=== PATIENT | female | born 1935 | race African-American/Black ===

== ENCOUNTER → 2016-10-10 | Outpatient (CLI) | payer MEDICARE, MEDICAID ==
[~2016-10-10] MED LIST: AMLODIPINE; HYDRX10T
[2016-10-10 10:51] LABS: Basophils # (auto) 0 uL; Basophils % (auto) 0.3 % (0.0-2.0); Eosinophils # (auto) 0.2 uL; Eosinophils % (auto) 1.4 % (0.0-7.0); Hematocrit 41.8 % (36.0-46.0); Hemoglobin 14.1 g/dL (12.2-16.2); Lymphocytes # (auto) 0.9 uL; Lymphocytes % (auto) 8.2 % (10.0-50.0); Mean Corpuscular Hemoglobin 27.1 pg (28.0-32.0); Mean Corpuscular Hgb Conc. 33.7 g/dL (32.0-36.0); Mean Corpuscular Volume 80.7 fL (80.0-100.0); Monocytes # (auto) 0.4 uL; Monocytes % (auto) 3.7 % (0.0-12.0); Neutrophils # (auto) 9.5 uL; Neutrophils % (auto) 86.4 % (37.0-80.0); Platelet Count (auto) 394 10^3/uL (140-450)
[2016-10-10 11:28] LABS: Albumin 4.5 g/dL (3.4-5.0); BUN/Creatinine Ratio 9.5; Bilirubin, Total 2.2 mg/dL (0.2-1.0); Calcium 10.5 mg/dL (8.5-10.1); Potassium 4.3 mmol/L (3.5-5.1); Total Protein 8.5 g/dL (6.4-8.2)
== END | disposition home or self-care (01) ==
LOC: LAB 10:28
PROVIDERS: ATTEND Internal Medicine
DX: I10 Essential (primary) hypertension (principal); E78.2 Mixed hyperlipidemia; E55.9 Vitamin D deficiency, unspecified
CPT/HCPCS: 36415; 80053; 80061; 82306; 84443; 85025

== ENCOUNTER → 2017-04-28 | Outpatient (CLI) | payer MEDICARE, MEDICAID ==
[2017-04-28 10:09] LABS: Basophils # (auto) 0.1 uL; Basophils % (auto) 0.7 % (0.0-2.0); Eosinophils # (auto) 0.3 uL; Eosinophils % (auto) 3.5 % (0.0-7.0); Hematocrit 41.8 % (36.0-46.0); Hemoglobin 14.3 g/dL (12.2-16.2); Lymphocytes # (auto) 0.9 uL; Lymphocytes % (auto) 9.4 % (10.0-50.0); Mean Corpuscular Hemoglobin 28.3 pg (28.0-32.0); Mean Corpuscular Hgb Conc. 34.1 g/dL (32.0-36.0); Mean Corpuscular Volume 82.8 fL (80.0-100.0); Mean Platelet Volume 7.8 fL (6.9-10.8); Monocytes # (auto) 0.5 uL; Monocytes % (auto) 5.1 % (0.0-12.0); Neutrophils # (auto) 7.6 uL; Neutrophils % (auto) 81.3 % (37.0-80.0); Nucleated Red Blood Cells % 0.1 %; Platelet Count (auto) 328 10^3/uL (140-450); Red Cell Distribution Width 14.3 % (11.8-14.3); White Blood Cell 9.4 10^3/uL (4.4-10.8)
[2017-04-28 10:50] LABS: BUN/Creatinine Ratio 10.3; Calcium 10.2 mg/dL (8.5-10.1); Potassium 4.1 mmol/L (3.5-5.1)
== END | disposition home or self-care (01) ==
LOC: LAB 09:49
PROVIDERS: ATTEND Internal Medicine
DX: I10 Essential (primary) hypertension (principal); E78.2 Mixed hyperlipidemia
CPT/HCPCS: 36415; 80048; 80061; 85025

== ENCOUNTER → 2017-09-03 | Outpatient (CLI) | payer MEDICARE | END | disposition home or self-care (01) | LOC: LAB 14:47 | PROVIDERS: ATTEND Physician Assistant | DX: Z00.01 Encounter for general adult medical examination with abnormal findings (principal); I12.9 Hypertensive chronic kidney disease with stage 1 through stage 4 chronic kidney disease, or unspecified chronic kidney disease; N18.3 Chronic kidney disease, stage 3 (moderate) | CPT/HCPCS: 82270 ==

== ENCOUNTER → 2018-11-26 | Outpatient (CLI) | payer MEDICARE ==
[2018-11-26 09:38] LABS: Basophils # (auto) 0 uL; Basophils % (auto) 0.6 % (0.0-2.0); Eosinophils # (auto) 0.1 uL; Hemoglobin 13.2 g/dL (12.2-16.2); Lymphocytes # (auto) 0.6 uL; Lymphocytes % (auto) 7.9 % (10.0-50.0); Mean Corpuscular Hemoglobin 27.2 pg (28.0-32.0); Mean Corpuscular Hgb Conc. 32.9 g/dL (32.0-36.0); Mean Corpuscular Volume 82.5 fL (80.0-100.0); Monocytes # (auto) 0.4 uL; Monocytes % (auto) 4.8 % (0.0-12.0); Neutrophils # (auto) 6.3 uL; Neutrophils % (auto) 84.7 % (37.0-80.0); Nucleated Red Blood Cells % 0.1 %; Platelet Count (auto) 297 10^3/uL (140-450); Red Blood Cells 4.84 10^6/uL (4.0-5.20); Red Cell Distribution Width 14.8 % (11.8-14.3); White Blood Cell 7.4 10^3/uL (4.4-10.8)
[2018-11-26 11:34] LABS: Albumin 4.2 g/dL (3.4-5.0); BUN/Creatinine Ratio 11.9; Bilirubin, Total 1.3 mg/dL (0.2-1.0); Total Protein 7.8 g/dL (6.4-8.2)
== END | disposition home or self-care (01) ==
LOC: LAB 09:21
PROVIDERS: ATTEND Physician Assistant
DX: I12.9 Hypertensive chronic kidney disease with stage 1 through stage 4 chronic kidney disease, or unspecified chronic kidney disease (principal); N18.3 Chronic kidney disease, stage 3 (moderate); E55.9 Vitamin D deficiency, unspecified; E78.49 Other hyperlipidemia
CPT/HCPCS: 36415; 80053; 80061; 82306; 85025

== ENCOUNTER → 2020-09-25 | Outpatient (CLI) | payer MEDICARE, MEDICAID ==
[2020-09-25 09:44] LABS: Basophils # (auto) 0.1 10 ^3/uL (0-0.2); Basophils % (auto) 0.9 % (0.0-2.0); Eosinophils # (auto) 0.5 10 ^3/uL (0-0.8); Eosinophils % (auto) 5.7 % (0.0-7.0); Hematocrit 40.4 % (36.0-46.0); Hemoglobin 13.6 g/dL (12.2-16.2); Lymphocytes # (auto) 0.9 10 ^3/uL (0.4-5.4); Lymphocytes % (auto) 11.1 % (10.0-50.0); Mean Corpuscular Hgb Conc. 33.7 g/dL (32.0-36.0); Monocytes # (auto) 0.6 10 ^3/uL (0-1.3); Monocytes % (auto) 7.2 % (0.0-12.0); Neutrophils # (auto) 6.4 10 ^3/uL (1.6-8.6); Neutrophils % (auto) 75.1 % (37.0-80.0); Platelet Count (auto) 352 10^3/uL (140-450); Red Blood Cells 4.87 10^6/uL (4.0-5.20); Red Cell Distribution Width 15.5 % (11.8-14.3); White Blood Cell 8.6 10^3/uL (4.4-10.8)
[2020-09-25 10:18] LABS: Albumin 4.1 g/dL (3.4-5.0); Potassium 4.1 mmol/L (3.5-5.1)
[2020-09-25 10:26] LABS: BUN/Creatinine Ratio 10.4; Bilirubin, Total 0.8 mg/dL (0.2-1.0); Calcium 10.6 mg/dL (8.5-10.1); Total Protein 7.9 g/dL (6.4-8.2)
== END | disposition home or self-care (01) ==
LOC: LAB 09:28
PROVIDERS: ATTEND Physician Assistant
DX: I12.9 Hypertensive chronic kidney disease with stage 1 through stage 4 chronic kidney disease, or unspecified chronic kidney disease (principal); N18.30 Chronic kidney disease, stage 3 unspecified; E78.49 Other hyperlipidemia; R79.89 Other specified abnormal findings of blood chemistry
CPT/HCPCS: 36415; 80053; 80061; 85025

== ENCOUNTER 2020-10-26 23:14 | Emergency (ER) | payer MEDICARE, MEDICAID ==
[~2020-10-26] VITALS: Ht 172.7 cm; Wt 79.4 kg
[2020-10-27] MEDS ORDERED: ACETAMINOPHEN 500 MG TAB PO ONE (07:45)
[2020-10-27 07:57] VITALS: BP 127/59
== END 2020-10-27 07:56 | disposition home or self-care (01) ==
LOC: ER 23:24
DX: S01.81XA Laceration without foreign body of other part of head, initial encounter (principal); R41.82 Altered mental status, unspecified; F41.9 Anxiety disorder, unspecified; J45.909 Unspecified asthma, uncomplicated; E78.00 Pure hypercholesterolemia, unspecified; I10 Essential (primary) hypertension; E78.5 Hyperlipidemia, unspecified; Z98.890 Other specified postprocedural states; W06.XXXA Fall from bed, initial encounter; Y93.89 Activity, other specified; Y92.89 Other specified places as the place of occurrence of the external cause; Y99.8 Other external cause status
CPT/HCPCS: 12013; 70450; 72125; 73090

== ENCOUNTER 2022-04-27 12:16 | Inpatient (IN) | payer MEDICAID, MEDICARE, OTHER ==
[~2022-04-27] VITALS: Ht 152.4 cm; Wt 79.0 kg
[2022-04-27] MEDS ORDERED: SODIUM CHLORIDE 0.9% 1,000 ML IV ONE (12:30)
[2022-04-27] MEDS ORDERED: FUROSEMIDE 20 MG/2 ML VIAL IV ONE (13:00)
[2022-04-27 13:39] LABS: Basophils # (auto) 0.1 10 ^3/uL (0-0.2); Eosinophils # (auto) 0.1 10 ^3/uL (0-0.8); Lymphocytes # (auto) 1.2 10 ^3/uL (0.4-5.4); Monocytes # (auto) 0.7 10 ^3/uL (0-1.3); Red Cell Distribution Width 20.4 % (11.8-14.3)
[2022-04-27 13:40] LABS: Basophils % (auto) 0.6 % (0.0-2.0); Eosinophils % (auto) 0.6 % (0.0-7.0); Hemoglobin 12.1 g/dL (12.2-16.2); Lymphocytes % (auto) 9.9 % (10.0-50.0); Mean Corpuscular Hgb Conc. 31.9 g/dL (32.0-36.0); Mean Corpuscular Volume 84.6 fL (80.0-100.0); Monocytes % (auto) 6.4 % (0.0-12.0); Neutrophils # (auto) 9.7 10 ^3/uL (1.6-8.6); Neutrophils % (auto) 82.5 % (37.0-80.0); Nucleated Red Blood Cells % 0.6 %; Red Blood Cells 4.49 10^6/uL (4.0-5.20); White Blood Cell 11.8 10^3/uL (4.4-10.8)
[2022-04-27 14:06] LABS: Albumin 2.9 g/dL (3.4-5.0); BUN/Creatinine Ratio 13.9; Calcium 9.2 mg/dL (8.5-10.1); Potassium 4.9 mmol/L (3.5-5.1)
[2022-04-27 14:22] LABS: Bilirubin, Total 1.2 mg/dL (0.2-1.0); Total Protein 6.7 g/dL (6.4-8.2)
[2022-04-27 14:37] LABS: Lactic Acid w/Reflex 3.3 mmol/L (0.4-2.0)
[2022-04-27] MEDS ORDERED: ONDANSETRON HCL 4 MG/2 ML VIAL IV PRN (15:45)
[2022-04-27] MEDS ORDERED: ACETAMINOPHEN 325 MG TAB PO PRN (15:45)
[2022-04-27] MEDS ORDERED: NITROGLYCERIN 0.4 MG SL TAB SL PRN (15:45)
[2022-04-27] MEDS ORDERED: cefTRIAXone 1GM/50ML D5W 50 ML IV ONE (15:45)
[2022-04-27] MEDS ORDERED: MORPHINE SULFATE INJ 2 MG/ml SYRG IV PRN (15:45)
[2022-04-27] MEDS ORDERED: HYDROcodone-ACET 5/325MG TAB PO PRN (15:45)
[2022-04-27] MEDS ORDERED: DOCUSATE SOD 100 MG CAP PO PRN (15:45)
[2022-04-27] MEDS: ALBUTEROL SULF 2.5 MG/0.5ML(0.5%) NEB SOLN NEB SCH (18:18)
[2022-04-27] MEDS: IPRATROPIUM BROM 0.5 MG/2.5ML INH SOL NEB SCH (18:19)
[2022-04-27] MEDS: D5W 5% 1,000 ML IV SCH (22:28)
[2022-04-27 23:18] VITALS: BP 112/65
[2022-04-27] MEDS ORDERED: ATOR10TA52 PO (23:35)
[2022-04-27] MEDS ORDERED: HYDR12.55 PO (23:35)
[2022-04-27] MEDS ORDERED: LATA0.0019 EACHEYE (23:35)
[2022-04-27] MEDS ORDERED: ALBU108A5 INH (23:35)
[2022-04-27] MEDS ORDERED: AMLO-496 PO (23:35)
[2022-04-27] MEDS ORDERED: LISI-716 PO (23:35)
[2022-04-27 23:53] VITALS: BP 112/65
[2022-04-28 05:00] VITALS: BP 106/61
[2022-04-28 06:16] LABS: Basophils # (auto) 0.1 10 ^3/uL (0-0.2); Basophils % (auto) 0.6 % (0.0-2.0); Eosinophils # (auto) 0.1 10 ^3/uL (0-0.8); Eosinophils % (auto) 0.8 % (0.0-7.0); Hematocrit 33.3 % (36.0-46.0); Hemoglobin 10.8 g/dL (12.2-16.2); Lymphocytes # (auto) 1.1 10 ^3/uL (0.4-5.4); Lymphocytes % (auto) 9.7 % (10.0-50.0); Mean Corpuscular Hemoglobin 27.7 pg (28.0-32.0); Mean Corpuscular Hgb Conc. 32.4 g/dL (32.0-36.0); Mean Corpuscular Volume 85.4 fL (80.0-100.0); Monocytes # (auto) 0.8 10 ^3/uL (0-1.3); Monocytes % (auto) 7.5 % (0.0-12.0); Neutrophils # (auto) 8.8 10 ^3/uL (1.6-8.6); Neutrophils % (auto) 81.4 % (37.0-80.0); Nucleated Red Blood Cells % 0.2 %; White Blood Cell 10.8 10^3/uL (4.4-10.8)
[2022-04-28 06:35] LABS: Red Cell Distribution Width 20.8 % (11.8-14.3)
[2022-04-28 06:50] LABS: Potassium 4.2 mmol/L (3.5-5.1)
[2022-04-28] MEDS: ALBUTEROL SULF 2.5 MG/0.5ML(0.5%) NEB SOLN NEB SCH ×3 (06:55→18:33)
[2022-04-28] MEDS: IPRATROPIUM BROM 0.5 MG/2.5ML INH SOL NEB SCH ×3 (06:55→18:33)
[2022-04-28 07:00] LABS: BUN/Creatinine Ratio 16.1; Calcium 8.8 mg/dL (8.5-10.1)
[2022-04-28 09:00] VITALS: BP 117/48
[2022-04-28] MEDS: D5W 5% 1,000 ML IV SCH (09:14)
[2022-04-28] MEDS: cefTRIAXone 1GM/50ML D5W 50 ML IV SCH (09:21)
[2022-04-28] MEDS: PANTOPRAZOLE 40 MG/10 ML VIAL INJ IV SCH (09:24)
[2022-04-28] MEDS: FUROSEMIDE 20 MG/2 ML VIAL IV SCH (09:29)
[2022-04-28] MEDS ORDERED: ENOXAPARIN SOD 30 MG/0.3 ML SYRINGE SC SCH (10:00)
[2022-04-28 13:00] VITALS: BP_SYST 106; BP_SYST 116; BP_DIAS 55; BP_DIAS 59
[2022-04-28] MEDS: SOD CHL 0.45% 1,000 ML IV SCH (16:30)
[2022-04-28 17:00] VITALS: BP 103/59
[2022-04-28] MEDS ORDERED: ENOXAPARIN SOD 60 MG/0.6 ML SYRINGE SC ONE (18:00)
[2022-04-28] MEDS ORDERED: ATORVASTATIN 20 MG TAB PO ONE (18:00)
[2022-04-28 20:22] LABS: Urine Bacteria NONE SEEN /hpf (None Seen); Urine Blood 1+ /uL (Negative); Urine Hyaline Cast FEW /lpf (0 - 2); Urine Specific Gravity 1.009 (1.001-1.035); Urine WBC 68 /hpf (0 - 5)
[2022-04-28 20:39] LABS: Protein, Urine 16.5 mg/dL (0.0-11.9)
[2022-04-28] MEDS: LATANOPROST 0.005 % OPTH(EYE) SOL 2.5ML EACHEYE SCH (21:02)
[2022-04-28] MEDS: ATORVASTATIN 20 MG TAB PO SCH (21:03)
[2022-04-28 22:00] VITALS: BP 10/52
[2022-04-29] MEDS: SOD CHL 0.45% 1,000 ML IV SCH (02:17)
[2022-04-29 05:00] VITALS: BP 114/59
[2022-04-29] MEDS: ALBUTEROL SULF 2.5 MG/0.5ML(0.5%) NEB SOLN NEB SCH ×3 (06:40→19:01)
[2022-04-29] MEDS: IPRATROPIUM BROM 0.5 MG/2.5ML INH SOL NEB SCH ×3 (06:40→19:01)
[2022-04-29 06:46] LABS: Basophils # (auto) 0.1 10 ^3/uL (0-0.2); Basophils % (auto) 0.6 % (0.0-2.0); Eosinophils # (auto) 0.1 10 ^3/uL (0-0.8); Hematocrit 30.9 % (36.0-46.0); Lymphocytes # (auto) 1.2 10 ^3/uL (0.4-5.4); Mean Corpuscular Hemoglobin 27.6 pg (28.0-32.0); Mean Corpuscular Hgb Conc. 32.5 g/dL (32.0-36.0); Monocytes # (auto) 0.5 10 ^3/uL (0-1.3); Neutrophils # (auto) 8.9 10 ^3/uL (1.6-8.6); Neutrophils % (auto) 82.4 % (37.0-80.0); Nucleated Red Blood Cells % 0.2 %; Red Blood Cells 3.63 10^6/uL (4.0-5.20); White Blood Cell 10.9 10^3/uL (4.4-10.8)
[2022-04-29 07:15] LABS: Red Cell Distribution Width 20.1 % (11.8-14.3)
[2022-04-29 07:16] LABS: BUN/Creatinine Ratio 16.3; Calcium 8.6 mg/dL (8.5-10.1); Potassium 4.2 mmol/L (3.5-5.1)
[2022-04-29 09:00] VITALS: BP 113/57
[2022-04-29] MEDS: cefTRIAXone 1GM/50ML D5W 50 ML IV SCH (09:00)
[2022-04-29] MEDS: PANTOPRAZOLE 40 MG/10 ML VIAL INJ IV SCH (09:01)
[2022-04-29] MEDS: FUROSEMIDE 20 MG/2 ML VIAL IV SCH (09:10)
[2022-04-29] MEDS ORDERED: D5W 5% 1,000 ML IV SCH (11:15)
[2022-04-29 13:00] VITALS: BP 119/67
[2022-04-29 17:00] VITALS: BP 123/70
[2022-04-29 17:16] LABS: Urine Bacteria NONE SEEN /hpf (None Seen); Urine Blood 1+ /uL (Negative); Urine Hyaline Cast FEW /lpf (0 - 2); Urine WBC 8 /hpf (0 - 5)
[2022-04-29 17:25] LABS: Cholesterol 108 mg/dL (< 200); HDL Cholesterol 59 mg/dL (40-59); LDL Cholesterol 35 mg/dL (< 100); Triglycerides 142 mg/dL (< 150)
[2022-04-29 17:26] LABS: Folate (Folic Acid) 4.9 ng/mL (5.38-24)
[2022-04-29] MEDS: ENOXAPARIN SOD 80 MG/0.8ML SYRINGE SC SCH (18:16)
[2022-04-29] MEDS ORDERED: CYANOCOBALAMIN (B-12) 1000 MCG/1 ML VIAL IM ONE (21:45)
[2022-04-29] MEDS ORDERED: B-COMPLEX W/ C & FOLIC ACID(NEPHROVITE TAB) PO ONE (21:45)
[2022-04-29 22:00] VITALS: BP 107/57
[2022-04-29] MEDS: ATORVASTATIN 20 MG TAB PO SCH (22:11)
[2022-04-29] MEDS: LATANOPROST 0.005 % OPTH(EYE) SOL 2.5ML EACHEYE SCH (22:11)
[2022-04-30 05:00] VITALS: BP 100/56
[2022-04-30] MEDS: ALBUTEROL SULF 2.5 MG/0.5ML(0.5%) NEB SOLN NEB SCH ×3 (06:31→18:54)
[2022-04-30] MEDS: IPRATROPIUM BROM 0.5 MG/2.5ML INH SOL NEB SCH ×3 (06:31→18:54)
[2022-04-30 07:06] LABS: RPR Non Reactive (Non Reactive)
[2022-04-30 07:19] LABS: Basophils # (auto) 0 10 ^3/uL (0-0.2); Basophils % (auto) 0.4 % (0.0-2.0); Eosinophils # (auto) 0.1 10 ^3/uL (0-0.8); Eosinophils % (auto) 1.6 % (0.0-7.0); Hemoglobin 10.6 g/dL (12.2-16.2); Lymphocytes # (auto) 0.7 10 ^3/uL (0.4-5.4); Lymphocytes % (auto) 7.3 % (10.0-50.0); Mean Corpuscular Hemoglobin 27.5 pg (28.0-32.0); Mean Corpuscular Hgb Conc. 32.1 g/dL (32.0-36.0); Mean Corpuscular Volume 85.5 fL (80.0-100.0); Monocytes # (auto) 0.6 10 ^3/uL (0-1.3); Monocytes % (auto) 6.3 % (0.0-12.0); Neutrophils % (auto) 84.4 % (37.0-80.0); Nucleated Red Blood Cells % 0.1 %; Red Blood Cells 3.86 10^6/uL (4.0-5.20); White Blood Cell 9.5 10^3/uL (4.4-10.8)
[2022-04-30 07:40] LABS: INR 1.13 (0.9-1.15); Partial Thromboplastin Time 42.8 sec (24.6-33.4)
[2022-04-30 07:46] LABS: Albumin 2.1 g/dL (3.4-5.0); BUN/Creatinine Ratio 16.9; Bilirubin, Total 1.2 mg/dL (0.2-1.0); Calcium 8.5 mg/dL (8.5-10.1); Magnesium 2.4 mg/dL (1.6-2.6); Phosphorus 3.4 mg/dL (2.5-4.90); Potassium 4.2 mmol/L (3.5-5.1); Total Protein 5.2 g/dL (6.4-8.2)
[2022-04-30 09:00] VITALS: BP 101/59
[2022-04-30] MEDS: PANTOPRAZOLE 40 MG/10 ML VIAL INJ IV SCH (10:49)
[2022-04-30] MEDS: cefTRIAXone 1GM/50ML D5W 50 ML IV SCH (10:51)
[2022-04-30] MEDS: B-COMPLEX W/ C & FOLIC ACID(NEPHROVITE TAB) PO SCH (10:51)
[2022-04-30] MEDS: CYANOCOBALAMIN (B-12) 1000 MCG/1 ML VIAL IM SCH (11:38)
[2022-04-30 13:00] VITALS: BP 102/55
[2022-04-30 17:00] VITALS: BP 112/65
[2022-04-30] MEDS: ENOXAPARIN SOD 80 MG/0.8ML SYRINGE SC SCH (18:00)
[2022-05-01 01:30] VITALS: BP 111/66
[2022-05-01] MEDS: LATANOPROST 0.005 % OPTH(EYE) SOL 2.5ML EACHEYE SCH (01:56)
[2022-05-01] MEDS: ATORVASTATIN 20 MG TAB PO SCH (01:56)
[2022-05-01 05:49] VITALS: BP 112/68
[2022-05-01 06:48] LABS: Basophils # (auto) 0 10 ^3/uL (0-0.2); Basophils % (auto) 0.5 % (0.0-2.0); Eosinophils # (auto) 0.1 10 ^3/uL (0-0.8); Eosinophils % (auto) 1.3 % (0.0-7.0); Hematocrit 31.5 % (36.0-46.0); Hemoglobin 10.2 g/dL (12.2-16.2); Lymphocytes # (auto) 0.5 10 ^3/uL (0.4-5.4); Lymphocytes % (auto) 5.7 % (10.0-50.0); Mean Corpuscular Hemoglobin 27.6 pg (28.0-32.0); Mean Corpuscular Hgb Conc. 32.4 g/dL (32.0-36.0); Mean Corpuscular Volume 85.3 fL (80.0-100.0); Monocytes # (auto) 0.6 10 ^3/uL (0-1.3); Monocytes % (auto) 7.6 % (0.0-12.0); Neutrophils % (auto) 84.9 % (37.0-80.0); Nucleated Red Blood Cells % 0.1 %; White Blood Cell 8.2 10^3/uL (4.4-10.8)
[2022-05-01 07:33] LABS: BUN/Creatinine Ratio 20.4; Calcium 8.7 mg/dL (8.5-10.1); Magnesium 2.3 mg/dL (1.6-2.6); Potassium 3.9 mmol/L (3.5-5.1)
[2022-05-01] MEDS ORDERED: D5W 5% 1,000 ML IV SCH ×2 (08:45→11:15)
[2022-05-01 09:00] VITALS: BP 124/64
[2022-05-01] MEDS: B-COMPLEX W/ C & FOLIC ACID(NEPHROVITE TAB) PO SCH (09:34)
[2022-05-01] MEDS: CYANOCOBALAMIN (B-12) 1000 MCG/1 ML VIAL IM SCH (09:35)
[2022-05-01] MEDS: cefTRIAXone 1GM/50ML D5W 50 ML IV SCH (09:36)
[2022-05-01] MEDS: IPRATROPIUM BROM 0.5 MG/2.5ML INH SOL NEB SCH ×2 (11:41→11:42)
[2022-05-01] MEDS: ALBUTEROL SULF 2.5 MG/0.5ML(0.5%) NEB SOLN NEB SCH (11:42)
[2022-05-01] MEDS ORDERED: APIX5TAB4 PO (11:45)
[2022-05-01 13:00] VITALS: BP 116/60
== END 2022-05-01 17:33 | disposition home or self-care (01) | DRG 291 ==
LOC: ER 12:21 → TELE 15:50 → TELE-WESTW 23:00
PROVIDERS: ADMIT Nurse Practitioner Family; ATTEND Internal Medicine
PROC: 0W9B3ZZ Drainage of Left Pleural Cavity, Percutaneous Approach (ICD-10-PCS; principal; 2022-05-01)
DX: I13.0 Hypertensive heart and chronic kidney disease with heart failure and stage 1 through stage 4 chronic kidney disease, or unspecified chronic kidney disease (principal); I50.31 Acute diastolic (congestive) heart failure; N17.0 Acute kidney failure with tubular necrosis; C79.51 Secondary malignant neoplasm of bone; I31.39 Other pericardial effusion (noninflammatory); I82.401 Acute embolism and thrombosis of unspecified deep veins of right lower extremity; E87.0 Hyperosmolality and hypernatremia; C78.00 Secondary malignant neoplasm of unspecified lung; F03.90 Unspecified dementia, unspecified severity, without behavioral disturbance, psychotic disturbance, mood disturbance, and anxiety; Z20.822 Contact with and (suspected) exposure to COVID-19; N18.32 Chronic kidney disease, stage 3b; K52.9 Noninfective gastroenteritis and colitis, unspecified; F41.9 Anxiety disorder, unspecified; E86.0 Dehydration; Z66 Do not resuscitate; E78.5 Hyperlipidemia, unspecified; J45.909 Unspecified asthma, uncomplicated; D64.9 Anemia, unspecified; Z87.891 Personal history of nicotine dependence; Z79.01 Long term (current) use of anticoagulants
CPT/HCPCS: 36415; 70450; 71045; 71250; 76604; 76775; 76942; 78582; 80048; 80053; 80061; 81001; 82306; 82570; 82607; 82746; 83605; 83735; 83880; 83930; 83935; 83970; 83986; 84100; 84156; 84300; 84443; 84484; 85025; 85610; 85730; 86592; 87040; 87070; 87077; 87086; 87205; 87426; 89051; 93005; 93306; 93970; 94640; 96365; 96375; 99291; C9113; G0378; J0696